=== PATIENT | male | born 1970 | race American Indian/Alaskan Native ===

== ENCOUNTER 2016-06-12 09:08 | Inpatient (IN) | payer MEDICAID ==
[2016-06-12] MEDS ORDERED: ZOFRAN IV ONE (16:31)
[2016-06-12] MEDS ORDERED: MORPHINE IV ONE (16:31)
[2016-06-12] MEDS ORDERED: VANCOMYCIN/NS 1 GM/250 ML 250 ML IV ONE (16:33)
[2016-06-12] MEDS ORDERED: ZOSYN/NS 4.5GM/100ML 100 ML IV ONE (16:33)
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
[2016-06-12] MEDS ORDERED: NACL 0.9% 1000 ML 1,000 ML IV ONE (16:42)
[2016-06-12 17:35] LABS: Hematocrit 46.8 % (35.5-45.6); Hemoglobin 15.3 gm/dl (11.8-15.2); Mean Corpuscular HGB Conc 33 % (32-34); Mean Corpuscular Hemoglobin 27 pg (28-32); Mean Corpuscular Volume 84 fl (84-94); Platelet Count 229 K/mm3 (140-440); Red Blood Count 5.59 M/mm3 (3.65-5.03); Red Cell Distribution Width 14.6 % (13.2-15.2); White Blood Count 9.5 K/mm3 (4.5-11.0)
[2016-06-12 17:58] LABS: Erythrocyte Sedimentation Rate 1 mm/Hr (0-20)
[2016-06-12 18:00] LABS: Anion Gap 19 mmol/L; Blood Urea Nitrogen 10 mg/dL (9-20); Calcium 9.5 mg/dL (8.4-10.2); Carbon Dioxide 23 mmol/L (22-30); Chloride 99.1 mmol/L (98-107); Glucose 303 mg/dL (75-100); Potassium 4.6 mmol/L (3.6-5.0); Sodium 136 mmol/L (137-145)
--- NOTE | 2016-06-12 18:48 | Admit Criteria Form ---
Admission Criteria Documentation: WOUND COMPLICATIONS Clinical Indications for Inpatient Care (Place 'X' for any and all applicable criteria): Ongoing inpatient care may be indicated for wound complications with ANY ONE of the following (1) (15): [X ]I. Infection with ANY ONE of the following(32)(33): [ ]a) Temperature greater than 38.5 C (101.3 F) [ ]b) Evidence of tissue necrosis [ ]c) Erythema diameter expanding around wound despite treatment [ ]d) Mental status changes [ ]e) Dehydration [ ]f) Bacteremia [ ]g) Hemodynamic instability [ ]h) Suspected necrotizing fasciitis [ ]i) Rapidly spreading lesions [ ]j) High-risk location (eg, perineum, sternum, orbit) [X ]k) High-risk coexisting clinical condition as indicated by ANY ONE of the following: [X ]i) Poorly controlled diabetes [ ]ii) Cirrhosis [ ]iii) Renal failure [ ]iv) Neutropenia [ ] v) Asplenia [ ]vi) Immunosuppression (eg, AIDS, chronic corticosteroid use) [ ]viii) Other high-risk medical comorbidities [ ] II. Dehiscence requiring frequent monitoring or immediate treatment [ ] III. Hematoma with ANY ONE of the following: [ ]a) Hemodynamic instability or acute anemia due to rapid development of hematoma [ ]b) Neck hematoma causing airway compression [ ]c) Retroperitoneal hematoma [ ]d) Uncontrolled coagulopathy [ ]IV. Seroma with evidence of secondary infection and requirement for IV antibiotics [D](31) [ ]V. Pain that cannot be managed at lower level of care Extended stay beyond goal length of stay for primary condition may be needed until ALL of the following are present(1)(33)(34): [ ]a) Afebrile or fever resolving [ ]b) Hemodynamic stability [ ]c) Pain resolving [ ]d) Wound closed, continuity adequately restored, or wound manageable at lower level of care [ ]e) No drain needed or drain care manageable at lower level of care [ ]f) Wound hematoma or seroma resolving [ ]g) Antibiotics not needed or regimen manageable at lower level of care(38) [ ]h) Dressing care manageable at lower level of care [ ]i) Coagulopathy absent, resolved, or treatable at lower level of care [ ]j) Medical comorbidities resolved or treatable at lower level of care The original [facility] content created by Joel Duval has been revised. The portions of the content which have been revised are identified through the use of italic text or in bold, and Joel Duval has neither reviewed nor approved the modified material. All other unmodified content is copyright [facility]. Please see references footnoted in the original [facility] edition 2016 Admission Criteria Met: Yes
--- NOTE | 2016-06-12 21:40 | Event Note ---
Date: 06/12/16 See H/p in reports Cellulitis Rt Foot T2DM PAD Nicotine dependence
[2016-06-12] MEDS ORDERED: TYLENOL PO PRN (21:42)
[2016-06-12] MEDS ORDERED: D50W (25GM) IV PRN (21:42)
[2016-06-12] MEDS ORDERED: DULCOLAX PR PRN (21:42)
[2016-06-12] MEDS ORDERED: MILK OF MAGNESIA PO PRN (21:42)
[2016-06-12] MEDS ORDERED: ZOFRAN IV PRN (21:42)
[2016-06-12] MEDS: NOVOLOG SUB-Q ONE ×2 (22:19→22:50)
[2016-06-12] MEDS ORDERED: DILAUDID ONE (22:33)
[2016-06-12] MEDS ORDERED: LOVENOX SUB-Q ONE (22:34)
[2016-06-12] MEDS ORDERED: CLEOCIN 900 MG/50 mL 50 ML IV ONE (22:34)
[2016-06-12] MEDS ORDERED: BACTRIM DS ONE (22:35)
[2016-06-12] MEDS ORDERED: ZESTRIL ONE (22:36)
[2016-06-12] MEDS ORDERED: PEPCID ONE (22:36)
[2016-06-12] MEDS: PEPCID PO SCH (22:55)
[2016-06-12] MEDS: BACTRIM DS PO SCH (22:55)
[2016-06-12] MEDS: ZESTRIL PO SCH (22:55)
[2016-06-12] MEDS: CLEOCIN 900 MG/50 mL 50 ML IV SCH (22:55)
[2016-06-12] MEDS: LOVENOX SUB-Q SCH (22:55)
[2016-06-12] MEDS: DILAUDID IV PRN (22:56)
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
[2016-06-13] MEDS: DILAUDID IV PRN ×3 (03:47→17:45)
[2016-06-13] MEDS: ROXICODONE PO PRN ×3 (04:57→21:32)
[2016-06-13] MEDS: PERCOCET 5/325 PO PRN ×3 (04:58→21:32)
[2016-06-13] MEDS: CLEOCIN 900 MG/50 mL 50 ML IV SCH ×3 (05:15→21:31)
--- NOTE | 2016-06-13 09:29 | XRay Report ---
Right foot: The patient has amputation of the first toe distal to the metatarsal. The overlying soft tissues may be slightly edematous but there is no overt evidence of an ulcer. There is no underlying bone erosion. The second MP joint is narrowed and the articular surface of the metatarsal is with poor definition and probable narrowing of the joint. There is some question concerning mild erosion of the ulnar side with mild swelling at the base of the toe. The remainder of the foot is generally unremarkable. Impressions: 1. Nonspecific swelling of tissues adjacent to the distal amputated first digit and proximal second digit. 2. Questionable erosive changes of the second MP joint.
[2016-06-13] MEDS: PEPCID PO SCH ×2 (09:59→21:31)
[2016-06-13] MEDS: ZESTRIL PO SCH (09:59)
[2016-06-13] MEDS: BACTRIM DS PO SCH (09:59)
--- NOTE | 2016-06-13 12:37 | Progress Note ---
Assessment and Plan Assessment and plan: 1. Cellulitis of the right foot with possible bony involvement-we'll get MRI for further evaluation to rule out osteomyelitis. Continue clindamycin. We'll DC Bactrim. DVT of Dilaudid as needed for pain. Monitor for respiratory depression. Leg elevation 2. Diabetes type 2 uncontrolled with hyperglycemia-continue current insulin regime and continue to monitor Accu-Cheks 3. Benign hypertension-fair control, continue antihypertensive medications 4. DVT prophylaxis-Lovenox History Interval history: f/u RT foot cellulitis Patient seen at the bedside; pain and swelling improving in the RT leg but not the redness; he reported that he recently was at [place] and he signed out on Saturday. He reported that they had done imaging of the foot which had showed osteomyelitis Hospitalist Physical - Constitutional Vitals: Temp Pulse Resp BP Pulse Ox 98.4 F 84 20 124/74 100 06/13/16 08:28 06/13/16 08:28 06/13/16 08:28 06/13/16 08:28 06/13/16 08:28 General appearance: Present: no acute distress, well-nourished - EENT Eyes: Present: PERRL, EOM intact. Absent: scleral icterus, conjunctival injection ENT: hearing intact, clear oral mucosa, no oropharyngeal erythema, no poor dentition - Neck Neck: Present: supple, normal ROM. Absent: enlarged thyroid, masses or JVD - Respiratory Respiratory effort: normal Respiratory: negative: diminished, rales, rhonchi, wheezing - Cardiovascular Rhythm: regular Heart Sounds: Present: S1 & S2. Absent: gallop - Extremities Extremities: no ischemia, pulses intact, pulses symmetrical, abnormal (welling of the distal mid leg with erythema and warmth, callus to the sole of the foot) Peripheral Pulses: within normal limits - Abdominal General gastrointestinal: soft, non-tender, non-distended - Integumentary Integumentary: Present: clear - Psychiatric Psychiatric: appropriate mood/affect, intact judgment & insight - Neurologic Neurologic: CNII-XII intact, moves all extremities Results - Labs CBC & Chem 7: 06/12/16 17:00 06/12/16 17:00 Labs: Laboratory Last Values WBC 9.5 K/mm3 (4.5-11.0) 06/12/16 17:00 RBC 5.59 M/mm3 (3.65-5.03) H 06/12/16 17:00 Hgb 15.3 gm/dl (11.8-15.2) H 06/12/16 17:00 Hct 46.8 % (35.5-45.6) H 06/12/16 17:00 MCV 84 fl (84-94) 06/12/16 17:00 MCH 27 pg (28-32) L 06/12/16 17:00 MCHC 33 % (32-34) 06/12/16 17:00 RDW 14.6 % (13.2-15.2) 06/12/16 17:00 Plt Count 229 K/mm3 (140-440) 06/12/16 17:00 Lymph % (Auto) 33.7 % (13.4-35.0) 06/12/16 17:00 Emmet % (Auto) 9.4 % (0.0-7.3) H 06/12/16 17:00 Eos % (Auto) 2.0 % (0.0-4.3) 06/12/16 17:00 Baso % (Auto) 1.0 % (0.0-1.8) 06/12/16 17:00 Lymph # 3.2 K/mm3 (1.2-5.4) 06/12/16 17:00 Emmet # 0.9 K/mm3 (0.0-0.8) H 06/12/16 17:00 Eos # 0.2 K/mm3 (0.0-0.4) 06/12/16 17:00 Baso # 0.1 K/mm3 (0.0-0.1) 06/12/16 17:00 Seg Neutrophils % 53.9 % (40.0-70.0) 06/12/16 17:00 Seg Neutrophils # 5.1 K/mm3 (1.8-7.7) 06/12/16 17:00 ESR 1 mm/Hr (0-20) 06/12/16 17:00 Sodium 136 mmol/L (137-145) L 06/12/16 17:00 Potassium 4.6 mmol/L (3.6-5.0) 06/12/16 17:00 Chloride 99.1 mmol/L (98-107) 06/12/16 17:00 Carbon Dioxide 23 mmol/L (22-30) 06/12/16 17:00 Anion Gap 19 mmol/L 06/12/16 17:00 BUN 10 mg/dL (9-20) 06/12/16 17:00 Creatinine 0.8 mg/dL (0.8-1.5) 06/12/16 17:00 Estimated GFR > 60 ml/min 06/12/16 17:00 BUN/Creatinine Ratio 12.50 % 06/12/16 17:00 Glucose 303 mg/dL (75-100) H 06/12/16 17:00 POC Glucose 230 (70-105) H 06/13/16 10:58 Hemoglobin A1c 11.7 % (4-6) H 06/13/16 07:47 Calcium 9.5 mg/dL (8.4-10.2) 06/12/16 17:00 C-Reactive Protein 0.80 mg/dL (0.00-1.30) 06/12/16 17:00 X-ray of the right foot-amputation of the first toe distal to the metatarsal. The overlying soft tissues may be slightly edematous but there is no overt evidence of an ulcer. No underlying bony erosion. The second MP joint is narrowed and the articular surface of the metatarsal is with poor definition of probable narrowing of the chart. Some question concerning mild erosion of the ulnar side with mild swelling of the base of the toe.
--- NOTE | 2016-06-13 16:33 | Magnetic Resonance Report ---
MRI OF THE RIGHT FOOT WITHOUT CONTRAST: PROCEDURE: A multiplanar, multisequence study was performed without contrast. FINDINGS: There has been amputation of the first digit. There is abnormal hypointense T1 and hypointense T2 signal in the distal second metatarsal and in the proximal phalanx extending to the level of the head of the proximal phalanx. These areas also demonstrate hypointense signal on inversion recovery sequence indicating sclerosis with no intraosseous edema. There is irregularity of the cortical margin on both sides of the joint at the second metatarsophalangeal joint. There is scattered soft tissue edema involving both the plantar and dorsal soft tissues, but no evidence of focal abscess is seen. IMPRESSION: 1. The abnormal signal characteristics involving the second distal metatarsal and second proximal phalanx including the joint findings most likely represent chronic sclerosing osteomyelitis/arthritis with no definite MR evidence of acute osteomyelitis. 2. Extensive soft tissues changes consistent with cellulitis. No focal abscess is seen.
[2016-06-13] MEDS: LOVENOX SUB-Q SCH (21:31)
[2016-06-14] MEDS: NOVOLOG SUB-Q SCH ×3 (00:52→13:48)
[2016-06-14] MEDS: DILAUDID IV PRN ×2 (01:07→08:49)
[2016-06-14] MEDS: CLEOCIN 900 MG/50 mL 50 ML IV SCH (05:41)
[2016-06-14 05:47] LABS: Basophils % (Auto) 0.9 % (0.0-1.8); Eosinophils % (Auto) 4.7 % (0.0-4.3); Hemoglobin 14.4 gm/dl (11.8-15.2); Mean Corpuscular HGB Conc 33 % (32-34); Mean Corpuscular Hemoglobin 27 pg (28-32); Mean Corpuscular Volume 83 fl (84-94); Platelet Count 202 K/mm3 (140-440); Red Blood Count 5.33 M/mm3 (3.65-5.03); Red Cell Distribution Width 14.1 % (13.2-15.2); White Blood Count 7.1 K/mm3 (4.5-11.0)
--- NOTE | 2016-06-14 08:40 | Vascular Lab Report ---
LOWER EXTREMITY ARTERIAL DUPLEX: REASON FOR EXAM: Peripheral arterial disease. COMMENTS ON THE RIGHT: Triphasic waveforms are seen proximally. Triphasic and monophasic waveforms are seen distally. No significant velocity gradients are identified. No focal significant plaque is identified. Findings are consistent with normal perfusion. Findings are consistent with the ability to heal distal wounds. COMMENTS ON THE LEFT: Triphasic waveforms are seen proximally. Triphasic waveforms are seen distally. No significant velocity gradients are identified. No focal significant plaque is identified. Findings are consistent with normal perfusion. Findings are consistent with the ability to heal distal wounds. IMPRESSION: RIGHT: Essentially normal arterial flow. LEFT:Essentially normal arterial flow.
[2016-06-14] MEDS ORDERED: ROBITUSSIN DM PO PRN (10:08)
[2016-06-14] MEDS: ZESTRIL PO SCH (11:00)
[2016-06-14] MEDS: PEPCID PO SCH (11:01)
--- NOTE | 2016-06-14 12:48 | Consultation ---
History of Present Illness - Reason for Consult Consult date: 06/14/16 Osteomyelitis right foot Requesting physician: RENATA GARG - History of Present Illness Jose High is a 46-year-old male with type 2 DM and peripheral neuropathy and peripheral vascular disease status post multiple toe amputations who was admitted to [facility] on 06/12/16 with right foot pain. He states that he had the onset of pain over the dorsum of the right foot on 06/09/16 and was seen in the ED at [facility] on 06/10 and at that time admission was recommended but he signed out AGAINST MEDICAL ADVICE. When the pain got worse he came to [facility] and was admitted to the hospitalist service. He has not had any fever or chills. He has not had any open wounds on his feet for some time. He has had foot care by a heel boom operator, Dr. Lyle, and had amputation of the left first and second toes and abscess drainage 03/26/2016. He has not had any surgeries since other than "callus shaving." He does not carefully monitor his blood sugars but says that "he thinks they have been okay." Review of systems General: No fevers or chills, no change in appetite, no weight change HEENT: no odynophagia, no dysphagia, no oral lesions, no vision changes CV: no chest pain, no palpitations Chest: no dyspnea, no cough GI: no abdominal pain, no N/V, no diarrhea : no change in urinary frequency, no dysuria, no hematuria Skin: See HPI Ext: See HPI Neuro: no headaches, no numbness/tingling, no tremors Endocrine: Diabetes as per HPI Psych: no anxiety, no depression Infectious diseases: No HIV risk factors, No history of STDs, No significant travel or animal contact history. Medications and Allergies Allergies Allergy/AdvReac Type Severity Reaction Status Date / Time No Known Allergies Allergy Verified 07/15/13 16:09 Home Medications Medication Instructions Recorded Confirmed Last Taken Type Insulin NPH/Regular [NovoLIN 70/30] 10 unit SUB-Q QPM 07/15/13 06/12/16 History Insulin NPH/Regular [NovoLIN 70/30] 15 unit SUB-Q QAM 07/15/13 06/12/16 History Insulin Regular, Human [HumuLIN R] 15 unit SQ QAM 06/12/16 06/12/16 Unknown History Active Meds: Active Medications Acetaminophen (Tylenol) 650 mg PO Q4H PRN PRN Reason: Pain MILD(1-3)/Fever >100.5/CALDERON Bisacodyl (Dulcolax) 10 mg NC QDAY PRN PRN Reason: Constipation unrelieved by MOM Dextrose (D50w (25gm)) 50 ml IV PRN PRN PRN Reason: Hypoglycemia Enoxaparin Sodium (Lovenox) 40 mg SUB-Q QDAY@2200 PENDING SALE TO [facility] Last Admin: 06/13/16 21:31 Dose: 40 mg Famotidine (Pepcid) 20 mg PO BID PENDING SALE TO [facility] Last Admin: 06/14/16 11:01 Dose: 20 mg Guaifenesin (Robitussin Dm) 20 ml PO Q4H PRN PRN Reason: Cough Hydromorphone HCl (Dilaudid) 1 mg IV Q3H PRN PRN Reason: Pain , Severe (7-10) Last Admin: 06/14/16 08:49 Dose: 1 mg Clindamycin HCl (Cleocin 900 Mg/50 Ml) 50 mls @ 100 mls/hr IV Q8HR PENDING SALE TO [facility] PRN Reason: Protocol Last Admin: 06/14/16 05:41 Dose: 100 mls/hr Insulin Aspart (Novolog) 0 units SUB-Q ACHS PENDING SALE TO [facility] PRN Reason: Protocol Last Admin: 06/14/16 08:42 Dose: 3 units Insulin Human Isoph/Insulin Regular (Novolin 70/30) 20 unit SUB-Q QAMDIAB PENDING SALE TO [facility] Last Admin: 06/14/16 08:43 Dose: 20 unit Insulin Human Isoph/Insulin Regular (Novolin 70/30) 20 unit SUB-Q QPM PENDING SALE TO [facility] Last Admin: 06/13/16 17:51 Dose: 20 unit Lisinopril (Zestril) 10 mg PO QDAY PENDING SALE TO [facility] Last Admin: 06/14/16 11:00 Dose: 10 mg Magnesium Hydroxide (Milk Of Magnesia) 30 ml PO Q4H PRN PRN Reason: Constipation Ondansetron HCl (Zofran) 4 mg IV Q8H PRN PRN Reason: N/V unrelieved by Reglan Last Admin: 06/13/16 03:48 Dose: 4 mg Oxycodone HCl (Roxicodone) 2.5 mg PO Q6H PRN PRN Reason: Pain, Moderate (4-6) Last Admin: 06/13/16 21:32 Dose: 2.5 mg Oxycodone/Acetaminophen (Percocet 5/325) 1 tab PO Q6H PRN PRN Reason: Pain, Moderate (4-6) Last Admin: 06/13/16 21:32 Dose: 1 tab Physical Examination - Physical Exam Narrative exam: GENERAL: Well-developed, well-nourished appearing male who is alert and in no acute distress. HEAD: Normocephalic. No lesions seen. EYES: Pupils are equal reactive to light and accommodation. There is no scleral icterus. Optic fundi are not examined. EARS: Tympanic membranes are normal. THROAT: Oropharynx is normal with no evidence of oral candidiasis or pharyngitis. Somewhat poor dentition but no evidence of dental infection. NECK: Supple. No enlargement of the thyroid gland. No significant cervical lymphadenopathy. No jugular venous distention at 30. LUNGS: Clear with no adventitious sounds. HEART: Regular rate. S1 and S2 are normal. There are no murmurs, gallops, clicks or rubs heard. ABDOMEN: Soft and nontender. Liver and spleen are not palpably enlarged or tender. No palpable masses. Bowel sounds are normoactive. EXTREMITIES: There is no significant lower extremity edema. The right great toe has been amputated and the stump is well-healed with no signs of active infection nor ischemia. At present there is no significant erythema, increased warmth or tenderness over the right foot dorsum but he states that he did have the signs on admission. The left first and second toes have been amputated with well-healed stumps and no signs of infection or ischemia. Pulses in both feet are normal : Not examined NEUROLOGIC: Mild decreased sensation to pinprick in a stocking distribution. - Constitutional Vitals: Vital Signs Temp Pulse Resp BP Pulse Ox 98.9 F 90 18 132/64 97 06/13/16 23:48 06/13/16 23:48 06/14/16 01:37 06/13/16 23:48 06/13/16 23:48 Temperature -Last 24 Hours Temperature 98.9 F Temperature 99.4 F Results - Labs CBC & Chem 7: 06/14/16 05:05 06/12/16 17:00 Labs: Abnormal lab results Microbiology 06/12/16 17:00 Peripheral/Venous Blood Culture - Preliminary NO GROWTH AFTER 24 HOURS 06/12/16 17:00 Peripheral/Venous Blood Culture - Preliminary NO GROWTH AFTER 24 HOURS Imagin/4: Right foot MRI: Abnormal hypointense T1 and hypointense T2 signal in the distal second metatarsal and proximal phalanx extending to the level of the head of the proximal phalanx. Irregularity of the cortical margin on both sides of the joint of the second metatarsophalangeal joint. No abscess is seen. 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 Right foot x-ray: Nonspecific swelling of tissues adjacent to the distal amputated first toe and proximal second toe with questionable erosive changes of the second MP joint. Assessment and Plan Current antibiotics: Clindamycin 900 mg IV q8h 06/13 --> Previous antibiotics: Zosyn 4.5 g IV 06/12 Vancomycin 1 g IV 06/12 ASSESSMENT: Jose High is a 46-year-old male with type 2 DM and peripheral neuropathy and peripheral vascular disease status post multiple toe amputations who was admitted to [facility] on 06/12/16 with right foot pain. He states that he had the onset of pain over the dorsum of the right foot on 06/09/16 and was seen in the ED at [facility] on 06/10 and at that time admission was recommended but he signed out AGAINST MEDICAL ADVICE. When the pain got worse he came to [facility] and was admitted to the hospitalist service. Problem list: 1. Right foot cellulitis -Essentially resolved at this point 2. 06/13 right foot MRI showing changes consistent with chronic osteomyelitis -No evidence of acute osteomyelitis or abscess -Suspect chronic findings especially based on review of previous plain film reports from [facility] 3. Peripheral vascular disease -Status post amputation of right great toe and left great and second toes -No signs of ischemia 4. Type 2 DM -Peripheral neuropathy -Poor glycemic control with admitting hemoglobin A1c 11.7 PLAN: 1. Do not see a need for continued IV antibiotics at this point 2. Will switch to po Bactrim and clindamycin 3. He could be discharged home any time from ID point of view with follow-up with his primary care physician and heel boom operator. 4. Glycemic control as per the primary team. Thank you for this consultation. We will follow with you. Aries Sheikh MD [facility] Office: [phone]
[2016-06-14] MEDS ORDERED: CLEOCIN PO SCH (14:00)
[2016-06-14] MEDS ORDERED: BACTRIM DS PO SCH (14:00)
--- NOTE | 2016-06-14 15:35 | Discharge Summary ---
Providers - Providers Date of Admission: 06/12/16 21:42 Date of discharge: 06/14/16 Attending physician: RENATA GARG 06/14/16 07:37 Consult to Physician [CONS] Routine Consulting Provider: ESTEVAN SANTO Reason For Exam: chronic osteomyelitis; cellulitis Place consult to:: DR. VANG Notified:: DR. VANG Phone number called:: IN HOUSE Was contact made?: Yes If yes, spoke with:: DR. VANG Time called:: 10:08 Comment:: JAVI NOTIFIED Primary care physician: COLOR ADVISER Hospitalization Reason for admission: cellulitis of the right leg Condition: Fair Pertinent studies: VASCULAR LAB.PRELIMINARY REPORT.BLE ARTERIAL DUPLEX DONE.MINIMAL FIBROCALCIFIED PLAQUES SEEN THROUGHOUT VESSELS VISUALIZED.TRIPHASIC WAVEFORMS OBTAINED THROUGHOUT VESSELS INTERROGATED EXCEPT THE RT.ROSY AND RT.DPA WHICH HAVE MONOPHASIC WAVEFORMS.VESSELS APPEAR PATENT. MRI of the foot-extensive soft tissue changes consistent with cellulitis. No focal abscess. Abnormal signal practically 6 involving the second distal metatarsal and second proximal phalanx including the joint findings most likely represent chronic sclerosing osteomyelitis or arthritis with no definite MRI evidence of acute osteomyelitis Hospital course: Mr High presented to the ER pain and swelling with redness to the RT leg; he was diagnosed as right leg cellulitis and started on IV antibiotics. His cellulitis improved. Seen by infectious disease specialist who recommended continuing antibiotics for complete treatment of his cellulitis. No care home antibiotics were recommended for his chronic osteomyelitis. He was cleared for discharge by infectious disease to follow-up with his PCP and director weights and measures. Condition at discharge-stable 32 minutes spent preparing discharge Disposition: DISCHARGED TO HOME OR SELFCARE - Discharge Diagnoses (1) Cellulitis Status: Acute (2) CAD (coronary artery disease) Status: Acute (3) Diabetes 1.5, managed as type 2 Status: Chronic Core Measure Documentation - Palliative Care Palliative Care/ Comfort Measures: Not Applicable - Core Measures Any of the following diagnoses?: none Exam - Constitutional Vitals: Temp Pulse Resp BP Pulse Ox 97.2 F L 78 18 139/84 97 06/14/16 08:35 06/14/16 08:35 06/14/16 08:35 06/14/16 08:35 06/14/16 08:35 General appearance: Present: no acute distress - EENT Eyes: Present: PERRL, EOM intact. Absent: scleral icterus, conjunctival injection ENT: hearing intact, clear oral mucosa, no oropharyngeal erythema, no poor dentition - Neck Neck: Present: supple, normal ROM. Absent: enlarged thyroid, masses or JVD - Respiratory Respiratory effort: normal Respiratory: negative: diminished, rales, rhonchi, wheezing - Cardiovascular Rhythm: regular Heart Sounds: Present: S1 & S2. Absent: gallop - Extremities Extremities: no ischemia, pulses intact, pulses symmetrical, No edema Extremity abnormal: other (RT LE- amputation of the RT great toe; mild redness distal leg; minimal swelling ) Peripheral Pulses: within normal limits - Abdominal General gastrointestinal: Present: soft, non-tender, non-distended, normal bowel sounds Male genitourinary: Present: deferred - Rectal Rectal Exam: deferred - Integumentary Integumentary: Present: clear - Musculoskeletal Musculoskeletal: strength equal bilaterally - Psychiatric Psychiatric: appropriate mood/affect, intact judgment & insight, cooperative - Neurologic Neurologic: CNII-XII intact, moves all extremities Plan Activity: advance as tolerated, fall precautions Diet: low cholesterol, low salt, diabetic Additional Instructions: F/U director weights and measures Follow up with: PRIMARY CARE, [Primary Care Provider] - 3-5 Days Prescriptions: Clindamycin [Clindamycin CAP] 300 mg PO TID 7 Days Sulfamethoxazole/Trimethoprim [Bactrim DS TAB] 1 each PO Q12HR #14 tablet
[2016-06-14 16:32] VITALS: BP 144/80
== END 2016-06-14 17:33 | disposition home or self-care (01) | DRG 603 ==
LOC: ED 09:08 → 3A 21:42
PROVIDERS: ADMIT Internal Medicine; ATTEND Hospitalist
DX: L03.115 Cellulitis of right lower limb (principal); E11.69 Type 2 diabetes mellitus with other specified complication; E11.65 Type 2 diabetes mellitus with hyperglycemia; M86.171 Other acute osteomyelitis, right ankle and foot; I10 Essential (primary) hypertension; J45.909 Unspecified asthma, uncomplicated; F17.210 Nicotine dependence, cigarettes, uncomplicated; E11.42 Type 2 diabetes mellitus with diabetic polyneuropathy; E11.51 Type 2 diabetes mellitus with diabetic peripheral angiopathy without gangrene; I25.10 Atherosclerotic heart disease of native coronary artery without angina pectoris; Z79.4 Long term (current) use of insulin; Z89.412 Acquired absence of left great toe; Z89.411 Acquired absence of right great toe; Z98.890 Other specified postprocedural states; Z82.49 Family history of ischemic heart disease and other diseases of the circulatory system; Z79.2 Long term (current) use of antibiotics; Z79.899 Other long term (current) drug therapy
CPT/HCPCS: 36415; 80048; 82962; 83036; 85025; 85652; 86140; 87040; 93925; 96365; 96366; 96372; 96375; J1170; J1650; J1815; J2270; J2405; J2543; J3370; J7030